=== PATIENT | female | born 1955 | race Caucasian/White ===

== ENCOUNTER 2023-06-13 11:55 | Outpatient (CLI) | payer BC | END 2023-06-13 11:56 | disposition home or self-care (01) | LOC: CSHMAMMO 11:55 | PROVIDERS: ATTEND Family Medicine | DX: M85.851 Other specified disorders of bone density and structure, right thigh (principal); M85.852 Other specified disorders of bone density and structure, left thigh; M81.0 Age-related osteoporosis without current pathological fracture | CPT/HCPCS: 77080 ==